=== PATIENT | male | born 1960 | race American Indian/Alaskan Native ===

== ENCOUNTER 2018-08-14 12:00 | Emergency (ER) | payer BC ==
[2018-08-14 12:01] VITALS: BMI 52.9
[2018-08-14 12:19] VITALS: TEMP 98.5
[2018-08-14 13:32] LABS: BASO # 0.02 K/mm3 (0.0-2.0); BASO % 0.3 % (0.0-3.0); EOS # 0.1 (0.0-0.7); EOS % 1.6 % (1.5-5.0); GRAN # 4.13 (1.4-6.5); GRAN % 60.5 % (50.0-68.0); HEMOGLOBIN 12.7 g/dL (14.0-18.0); LYMPH # 2.3 (1.2-3.4); LYMPH % 32.9 % (22.0-35.0); MEAN CELL VOLUME 86.7 fl (80.0-105.0); MEAN CORPUSCULAR HEMOGLOBIN 27.8 pg (25.0-35.0); MEAN CORPUSCULAR HGB CONC 32.1 g/dl (31.0-37.0); MEAN PLATELET VOLUME 10.5 fl (7.0-11.0); MONO # 0.3 (0.1-0.6); MONO % 4.7 % (1.0-6.0); RBC 4.57 10^6/uL (3.5-6.1); RED CELL DISTRIBUTION WIDTH 13.6 % (11.5-14.5); WHITE BLOOD COUNT 6.8 10^3/uL (4.5-11.0)
[2018-08-14 13:41] LABS: ALB/GLOB RATIO 1.1 (1.1-1.8); ALBUMIN 3.6 g/dL (3.0-4.8); ALT/SGPT 32 U/L (7-56); AST/SGOT 20 U/L (17-59); BLOOD UREA NITROGEN 11 mg/dL (7-21); CALCIUM 8.6 mg/dL (8.4-10.5); GFR NON-AFRICAN AMERICAN > 60; URIC ACID 6.9 mg/dL (3.5-8.5)
--- NOTE | 2018-08-14 14:27 | RAD ---
Date of service: 08/14/2018 PROCEDURE: Left Foot Radiographs. HISTORY: toe pain COMPARISON: None. FINDINGS: BONES: Normal. No fracture. JOINTS: Normal. SOFT TISSUES: Normal. OTHER FINDINGS: None. IMPRESSION: Normal left foot radiographs.
--- NOTE | 2018-08-14 14:36 | ED PDOC ---
Arrival/HPI - General Chief Complaint: Lower Extremity Problem/Injury Time Seen by Provider: 08/14/18 12:11 Historian: Patient - History of Present Illness Narrative History of Present Illness (Text): 08/14/18 14:31 58yo morbidly obese male who present with complaint of left great toe pain, swelling for a week. Reports history of similar symptoms in the past and the symptoms resolved with antibiotics. He denies fever, chills, trauma, chest pain, SOB, nausea, vomiting, any other complaint. Past Medical History - Provider Review Nursing Documentation Reviewed: Yes - Infectious Disease Hx of Infectious Diseases: None - Tetanus Immunization Tetanus Immunization: Unknown - Reproductive Currently Lactating: No - Cardiac Hx Hypertension: Yes - Pulmonary Hx Chronic Obstructive Pulmonary Disease (COPD): Yes - Hematological/Oncological Hx Blood Transfusions: No Hx Blood Transfusion Reaction: No - Musculoskeletal/Rheumatological Hx Arthritis: Yes (Degenerative arthritis) - Psychiatric Hx Substance Use: No - Past Surgical History Past Surgical History: No Previous - Anesthesia Hx Anesthesia Reactions: No Hx Malignant Hyperthermia: No - Suicidal Assessment Feels Threatened In Home Enviroment: No Family/Social History - Physician Review Nursing Documentation Reviewed: Yes Family/Social History: Unknown Family HX Smoking Status: Never Smoked Hx Alcohol Use: No Hx Substance Use: No Allergies/Home Meds Allergies/Adverse Reactions: Allergies No Known Allergies Allergy (Verified 12/05/14 10:32) Home Medications: Home Meds Medication Instructions Recorded Confirmed RX: Metoprolol Tartrate 100 mg PO BID 05/23/14 08/14/18 Review of Systems - Physician Review All systems were reviewed & negative as marked: Yes - Review of Systems Constitutional: Normal Eyes: Normal ENT: Normal Respiratory: Normal Cardiovascular: Normal Gastrointestinal: Normal Genitourinary Male: Normal Musculoskeletal: Arthralgias (Left great toe pain/swelling) Skin: Normal Neurological: Normal Endocrine: Normal Hemo/Lymphatic: Normal Psychiatric: Normal Physical Exam Vital Signs Reviewed: Yes Vital Signs Temp Pulse Resp BP Pulse Ox 08/14/18 12:15 98.5 F 85 18 136/75 95 Temperature: Afebrile Blood Pressure: Normal Pulse: Regular Respiratory Rate: Normal Appearance: Positive for: Well-Appearing, Non-Toxic, Comfortable Pain Distress: None Mental Status: Positive for: Alert and Oriented X 3 - Systems Exam Head: Present: Atraumatic, Normocephalic Pupils: Present: PERRL Extroacular Muscles: Present: EOMI Conjunctiva: Present: Normal Mouth: Present: Moist Mucous Membranes Neck: Present: Normal Range of Motion Respiratory/Chest: Present: Clear to Auscultation, Good Air Exchange. No: Respiratory Distress, Accessory Muscle Use Cardiovascular: Present: Regular Rate and Rhythm, Normal S1, S2. No: Murmurs Abdomen: No: Tenderness, Distention, Peritoneal Signs Back: Present: Normal Inspection Upper Extremity: Present: Normal Inspection. No: Cyanosis, Edema Lower Extremity: Present: NORMAL PULSES, Normal ROM, Tenderness (Left great toe), Temperature Abnormalties (Warm to touch over left foot). No: Edema, CALF TENDERNESS, Orquidea's Sign, Swelling, Erythema Neurological: Present: GCS=15, CN II-XII Intact, Speech Normal Skin: Present: Warm, Dry, Normal Color. No: Rashes Psychiatric: Present: Alert, Oriented x 3, Normal Insight, Normal Concentration Medical Decision Making ED Course and Treatment: 08/14/18 18:46 PT presented to ED for stated history. Labs Uric acid, sed rate Foot xray Toradol On re evaluation he reports improvement of his pain with medication. He was also seen by the bedside by his PMD, Dr. Foss while she was in ED. Foot xray IMPRESSION: Normal left foot radiographs. Labs was all unremarkable PT was treated and DC home with Keflex secondary to the warmth on exam. He was ambulatory in ED. Referred to her PMD - Lab Interpretations Lab Results: 08/14/18 13:26 08/14/18 13:26 Lab Results 08/14/18 13:26: WBC 6.8, RBC 4.57, Hgb 12.7 L, Hct 39.6 L, MCV 86.7, MCH 27.8, MCHC 32.1, RDW 13.6, Plt Count 173, MPV 10.5, Gran % 60.5, Lymph % (Auto) 32.9, Alcorn % (Auto) 4.7, Eos % (Auto) 1.6, Baso % (Auto) 0.3, Gran # 4.13, Lymph # (Auto) 2.3, Alcorn # (Auto) 0.3, Eos # (Auto) 0.1, Baso # (Auto) 0.02 08/14/18 13:26: Sodium 138, Potassium 3.8, Chloride 101, Carbon Dioxide 32, Anion Gap 9 L, BUN 11, Creatinine 0.8, Est GFR ( Amer) > 60, Est GFR (Non-Af Amer) > 60, Random Glucose 127 H, Uric Acid 6.9, Calcium 8.6, Total Bilirubin 0.6, AST 20, ALT 32, Alkaline Phosphatase 86, Total Protein 6.8, Albumin 3.6, Globulin 3.2, Albumin/Globulin Ratio 1.1 - RAD Interpretation Radiology Orders: 08/14/18 12:44 FOOT LEFT GREAT TOE ROUTINE [RAD] Stat - Medication Orders Current Medication Orders: Discontinued Medications Ketorolac Tromethamine (Toradol) 60 mg IM STAT STA Stop: 08/14/18 12:47 Last Admin: 08/14/18 13:08 Dose: 60 mg MAR Pain Assessment Document 08/14/18 13:08 [facility] (Rec: 08/14/18 13:17 [id number] Pain Reassessment Is this a pain reassessment? No Sleep Is patient sleeping during reassessment? No Presence of Pain Presence of Pain Yes Pain Scale Used Protocol: PSCALES Pain Scale Used Numeric IM Administration Charges Document 08/14/18 13:08 [facility] (Rec: 08/14/18 13:17 [id number] Charges for Administration # of IM Administrations 7 Disposition/Present on Arrival - Present on Arrival Any Indicators Present on Arrival: No History of DVT/PE: No History of Uncontrolled Diabetes: No Urinary Catheter: No History of Decub. Ulcer: No History Surgical Site Infection Following: None - Disposition Have Diagnosis and Disposition been Completed?: Yes Diagnosis: Foot pain Disposition: HOME/ ROUTINE Disposition Time: 14:40 Patient Plan: Discharge Condition: STABLE Discharge Instructions (ExitCare): Muscle and Bone Pain (DC) Additional Instructions: Follow up with your doctor Return to ED for any new or worsening symptoms Prescriptions: Cephalexin [Keflex] 500 mg PO TID #30 capsule RX: Ibuprofen [Motrin Tab] 600 mg PO Q6 #15 tab Referrals: Marika Foss MD [Family Provider] - Follow up with primary Forms: [employer] (Uzbek)
[2018-08-14 15:02] VITALS: BP 113/63; PULSE 80; RESP 20; O2SAT 99
--- NOTE | 2018-08-15 15:42 | CON ---
DATE OF CONSULTATION: 08/15/2018 HISTORY OF PRESENT ILLNESS: This 58-year-old male was examined in the [facility] Emergency Room on the afternoon of 08/14/2017. This case was reviewed in detail with nurse practitioner, Ever Menjivar, registered nurse. The patient presented with a chief complaint of left foot pain especially in his left great toe for the past several days. The patient is morbidly obese and is followed in my medical practice for chronic hypertension and hyperlipidemia. He states that he had no trauma to the left foot, but the pain became unbearable and he came to the emergency room for further evaluation of the above. FAMILY HISTORY: Noncontributory. SOCIAL HISTORY: The patient is a nondrinker, nonsmoker, non IV drug misuser. OUTPATIENT MEDICATIONS: Metoprolol tartrate 100 mg p.o. b.i.d. and Lipitor 20 mg p.o. h.s. ALLERGIES: NO KNOWN ALLERGIES TO MEDICATION. REVIEW OF SYSTEMS: CONSTITUTIONAL: He denied fever or chills. HEENT: Head: No headache or seizure. Eyes: No change in visual acuity. Ears: No hearing loss. Throat: No swallowing difficulty. NECK: No stiffness. CARDIAC: Chronic hypertension. No palpitation. No chest pain. PULMONARY: No cough. No hemoptysis. GI: No hematemesis. No melena. : No dysuria. SKIN: No rash. VASCULAR: No claudication. PSYCHOLOGICAL: No depression. NEUROLOGICAL: No knowledge of stroke. PHYSICAL EXAMINATION: VITAL SIGNS: Temperature 98.5, respirations 18, pulse 85, and blood pressure 136/75 with a pulse ox of 95% room air. HEENT: Head: Normocephalic, atraumatic. Eyes: No icterus. Ears: Clear. Throat: Noninjected. NECK: Supple. HEART: S1, S2. LUNGS: Clear. ABDOMEN: Obese. No palpable organomegaly. No rebound, no guarding. No tenderness. EXTREMITIES: No clubbing, no cyanosis, no edema. Left foot exam: The great toe has full range of motion, it was painful to the touch. There were no ulcers. There were palpable pulses in both feet. The foot felt slightly warm to touch. NEUROLOGICAL: Intact. PSYCHOLOGICAL: Alert. VASCULAR: Legs warm to touch. LABORATORY DATA: Sodium 138, K 3.8, chloride 101, bicarb 32, BUN 11, creatinine 0.8, random blood sugar 127 with a uric acid level of 6.9, calcium level of 8.6. White count 6800, hemoglobin 12.7, hematocrit 39.6, platelets 173,000. Left foot x-ray was reviewed. It showed no evidence of fracture. No bony erosions. IMPRESSION: This is a 58-year-old male, rule out degenerative arthritis, early cellulitis, morbid obesity, chronic hypertension and hyperlipidemia. PLAN: As discussed with nurse, Tiara, the patient will be sent home on Keflex 500 mg p.o. t.i.d., #30. He was given a prescription for Motrin p.r.n. pain. He was given one dose of Toradol in the emergency room with good results and will be monitored in my office as an outpatient regarding all of the above. Marika Foss MD
== END 2018-08-14 14:45 | disposition home or self-care (01) ==
LOC: ED 12:00
DX: M79.672 Pain in left foot (principal); I10 Essential (primary) hypertension; M19.90 Unspecified osteoarthritis, unspecified site
CPT/HCPCS: 73660; 80053; 84550; 85025; 85651; 96372; 99282; J1885